=== PATIENT | male | born 1960 | race Caucasian/White ===

== ENCOUNTER 2016-06-12 17:30 | Inpatient (IN) | payer MEDICAID, OTHER ==
[~2016-06-12] VITALS: Ht 162.6 cm; Wt 65.5 kg
[~2016-06-12 17:30] MED LIST: ABAC1TAB12 PO; ACYC800T PO; GABA-526 PO; IBUP800T25 PO; MULT-552 PO; VITA1TAB58 PO
[2016-06-12] MEDS ORDERED: HYDROmorphONE 1 MG/ML SYG IV STA ×2 (19:28→22:25)
[2016-06-12] MEDS ORDERED: SOD CHLORIDE 0.9% 1,000 ML IV STA (19:28)
[2016-06-12] MEDS ORDERED: ONDANSETRON 4 MG INJ IV STA ×2 (19:28→22:25)
[2016-06-12] MEDS ORDERED: SOD CHLORIDE 0.9% 1,000 ML IV ONE (19:30)
[2016-06-12 19:41] LABS: ADD SCAN DIFF NO
[2016-06-12 19:43] LABS: BASOPHILS % 0.2 % (0.0-2.0); EOSINOPHILS % 0.1 % (0.0-7.0); LYMPHOCYTES # 1.4 10^3/ul (0.8-2.9); LYMPHOCYTES % 10.6 % (15.0-51.0); MEAN CORPUSCULAR HEMOGLOBIN 32.8 pg (29.0-33.0); MEAN CORPUSCULAR HGB CONC 34.9 g/dl (32.0-37.0); MEAN CORPUSCULAR VOLUME 93.9 fl (82.0-101.0); MEAN PLATELET VOLUME 8.9 fl (7.4-10.4); MONOCYTE # 0.8 10^3/ul (0.3-0.9); MONOCYTES % 6.1 % (0.0-11.0); NEUTROPHIL # 10.9 10^3/ul (1.6-7.5); NEUTROPHILS % 82.4 % (39.0-77.0); PLATELET COUNT 189 10^3/UL (140-415); RED BLOOD COUNT 4.58 10^6/ul (4.70-6.10); RED CELL DISTRIBUTION WIDTH 12.3 % (11.5-14.5); WHITE BLOOD COUNT 13.2 10^3/ul (4.8-10.8)
[2016-06-12 19:56] LABS: ALBUMIN 3.9 g/dl (3.3-4.9)
[2016-06-12 19:57] LABS: POTASSIUM 3.8 mmol/L (3.5-5.1)
[2016-06-12 19:59] LABS: ALBUMIN/GLOBULIN RATIO 0.97; BILIRUBIN,INDIRECT 0.2 mg/dl (0-1.1); BILIRUBIN,TOTAL 0.2 mg/dl (0.2-1.3); CREATININE 1.17 mg/dl (0.61-1.24); TOTAL PROTEIN 7.9 g/dl (6.1-8.1)
[2016-06-12 20:00] LABS: CALCIUM 8.7 mg/dl (8.4-10.2)
[2016-06-12] MEDS ORDERED: IODIXANOL LOCM 100 ML BTL ONE (20:06)
[2016-06-12] MEDS ORDERED: SOD CHLORIDE 0.9% 100 ML ONE (20:06)
--- NOTE | 2016-06-12 20:31 | RADRPT ---
PROCEDURE: CT abdomen and pelvis with contrast. CLINICAL INDICATION: Left lower quadrant abdominal pain and diarrhea TECHNIQUE: CT scan of the abdomen and pelvis with contrast was performed. Coronal and sagittal im ages were also reformatted. 90 cc Visipaque 320 intravenous contrast was administered without compl ication. Total exam CTDIvol = 7.56 mGy and DLP = 408.55 mGy-cm. COMPARISON: None available. FINDINGS: Visualized lower thorax: Mild bibasilar scarring or subsegmental atelectasis with trace traction typ e bronchiectasis in the lower lobes. There is no evidence for pleural effusion. Liver, gallbladder, pancreas and spleen: Normal hepatic contour, attenuation in size. There is no evidence for liver mass or ductal dilatation. Findings are compatible with prior cholecystectomy. No common bile duct dilatation is evident. The pancreas is normal. The spleen is normal, not enlar ged. Adrenal glands and genitourinary system: The adrenal glands are normal bilaterally. The kidneys ar e normal in size, contour and attenuation with no evidence for masses, calculi or hydronephrosis. S ome areas of renal cortex thinning are consistent with scarring The ureters are unremarkable. The u rinary bladder shows no abnormality. The prostate gland is normal in size. The visualized scrotum shows no abnormality. Gastrointestinal system: The stomach is normal in caliber without wall thickening the small bowel is normal in caliber without evidence of ileus or obstruction. There is no evidence of appendicitis . Liquid stool is present throughout the entire colon there is diffuse enhancement of the colonic mu cosa and mild stranding of the pericolonic fat, the findings consistent with nonspecific diffuse col itis pattern. There is no evidence of pneumatosis. Peritoneum, retroperitoneum, vessels and lymph nodes: The abdominal aorta is normal in caliber. Th ere is trace right iliac atherosclerotic calcification. Inferior vena cava is normal in caliber. P rominent small bowel mesenteric lymph nodes are noted but are less than 1 cm in short axis. The per itoneal cavity is normal with no evidence for ascites. No pneumoperitoneum is present Osseous structures and musculoskeletal system: There is no evidence for acute osseous abnormality o r muscular pathology. Incidental limbus vertebrae of the superior L5 level is noted. No subcutaneous abnormalities are present. RPTAT:HJJR IMPRESSION: 1. Diffuse colonic wall thickening and enhancement from the cecum to the rectum is consistent with nonspecific pancolitis, the liquid stool in the colonic lumen corresponding to the history of diarrh ea. Reactive type small bowel mesenteric lymph nodes most notably in the right lower quadrant region are present. 2. There is no pneumatosis, ascites, pneumoperitoneum or vascular abnormality to suggest the coliti s changes are ischemic in etiology. 3. Small scattered areas of bilateral renal cortex scarring. 4. Changes of prior cholecystectomy. Physician Morgan Date Time Electronically viewed and signed by Lenny Bingham Physician on 06/12/2016 20:31 /
--- NOTE | 2016-06-12 21:57 | ERA ---
ER Documentation Chief Complaint Date/Time DATE: 06/12/16 TIME: 21:55 Chief Complaint LLQ ABD PAIN AND DIARRHEA SINCE YESTERDAY HPI This is a 55-year-old male who complains of diffuse abdominal pain with profuse watery diarrhea for the past 2-3 days. He said it got much worse yesterday. His pain is described as diffuse crampy with sharp episodes. No blood in the stool no mucus no vomiting nausea and no fever. Denies any possible bad food exposure or recent travel. Says nothing makes the pain worse or better. ROS All systems reviewed and are negative except as per history of present illness. Medications Home Meds Active Scripts Ibuprofen* (Motrin*) 800 Mg Tab, 800 MG PO Q6H Y for PAIN AND OR ELEVATED TEMP, #30 TAB Prov:REBECCA VILLAR MD 11/23/15 Reported Medications Abacavir/Dolutegravir/Lamivudi (Triumeq Tablet) 1 Each Tablet, 1 EACH PO DAILY, TAB 11/23/15 Vitamin B Complex (B Complex) 1 Tab.sa Tablet.sa, 1 TAB.SA PO DAILY 11/23/15 Gabapentin* (Gabapentin*) 600 Mg Tablet, 600 MG PO BID, #60 TAB 11/23/15 Multivitamins* (Once Daily*) 1 Tab Tablet, 1 TAB PO DAILY, TAB 11/23/15 Acyclovir* (Acyclovir*) 800 Mg Tablet, 800 MG PO DAILY, TAB 11/23/15 Allergies Allergies: Coded Allergies: No Known Allergy (Unverified , 06/12/16) PMhx/Soc History of Surgery: Yes (gall bladder) Hx Neurological Disorder: No Hx Respiratory Disorders: No Hx Cardiac Disorders: No Hx Psychiatric Problems: No Hx Miscellaneous Medical Probl: Yes (HIV, SHINGGLES ) Hx Alcohol Use: No Hx Substance Use: No Hx Tobacco Use: No Smoking Status: Never smoker FmHx Family History: No coronary disease Physical Exam Vitals Vital Signs Date Time Temp Pulse Resp B/P Pulse Ox O2 Delivery O2 Flow Rate FiO2 06/12/16 20:26 99.8 92 20 126/99 98 Room Air 06/12/16 19:15 99.1 92 21 131/91 99 Room Air 06/12/16 17:43 101.7 107 20 134/77 96 Physical Exam Const: Well-developed, well-nourished Head: Atraumatic, normocephalic Eyes: Normal Conjunctiva, PERRLA, EOMI, normal sclera, no nystagmus ENT: Normal External Ears, Nose and Mouth, moist mucus membranes. Neck: Full range of motion. No meningismus, no lymphadenopathy. Resp: Clear to auscultation bilaterally, no wheezing, rhonchi, rales Cardio: Regular rate and rhythm, no murmurs, S1 S2 present Abd: Soft, moderate to severe diffuse abdominal pain, non distended. Normal bowel sounds, mild guarding, no pulsitile abdominal masses or bruits Skin: No petechiae or rashes, no ecchymosis , no maculopapular rash Back: No midline or flank tenderness Ext: No cyanosis, or edema, FROM x 4, normal inspection, neurovascularly intact x 4 Neur: Awake and alert, STR 5/5 x 4, sensation intact x 4, no focal findings, cerebellum intact Psych: Normal Mood and Affect Result Diagram: 06/12/16193406/12/161934 Results 24 hrs Laboratory Tests Test 06/12/16 19:35 Alanine Aminotransferase (ALT/SGPT) 38IU/L Albumin 3.9g/dl Albumin/Globulin Ratio 0.97 Alkaline Phosphatase 90IU/L Anion Gap 16 Aspartate Amino Transf (AST/SGOT) 26IU/L Basophils # 0.010^3/ul Basophils % 0.2% Blood Urea Nitrogen 18mg/dl Calcium Level 8.7mg/dl Carbon Dioxide Level 30mmol/L Chloride Level 99mmol/L Creatinine 1.17mg/dl Direct Bilirubin 0.00mg/dl Eosinophils # 0.010^3/ul Eosinophils % 0.1% Globulin 4.00g/dl Glucose Level 121mg/dl Hematocrit 43.0% Hemoglobin 15.0g/dl Indirect Bilirubin 0.2mg/dl Lipase 214U/L Lymphocytes # 1.410^3/ul Lymphocytes % 10.6% Mean Corpuscular Hemoglobin 32.8pg Mean Corpuscular Hemoglobin Concent 34.9g/dl Mean Corpuscular Volume 93.9fl Mean Platelet Volume 8.9fl Monocytes # 0.810^3/ul Monocytes % 6.1% Neutrophils # 10.910^3/ul Neutrophils % 82.4% Nucleated Red Blood Cells # 0.010^3/ul Nucleated Red Blood Cells % 0.0/100WBC Platelet Count 98539^3/UL Potassium Level 3.8mmol/L Red Blood Count 4.5810^6/ul Red Cell Distribution Width 12.3% Sodium Level 141mmol/L Total Bilirubin 0.2mg/dl Total Protein 7.9g/dl White Blood Count 13.210^3/ul Current Medications Medications (Trade) Dose Ordered Sig/Jez Route PRN Reason Start Time Stop Time Status Last Admin Dose Admin Sodium Chloride (NS) 1,000 ml @ 1,000 mls/hr Q1H STAT IV 06/12/16 19:28 06/12/16 20:27 DC 06/12/16 19:39 Hydromorphone HCl (Dilaudid) 1 mg ONCE STAT IV 06/12/16 19:28 06/12/16 19:29 DC 06/12/16 19:39 Ondansetron HCl 4 mg 4 mg ONCE STAT IV 06/12/16 19:28 06/12/16 19:29 DC 06/12/16 19:39 Sodium Chloride (NS) 1,000 ml @ 1,000 mls/hr Q1H ONCE IV 06/12/16 19:30 06/12/16 20:29 DC 06/12/16 20:36 IV Flush 10 ml 10 ml STK-MED ONCE .ROUTE 06/12/16 20:06 06/12/16 20:07 DC 06/12/16 20:17 Sodium Chloride (NS) 100 ml @ ud STK-MED ONCE .ROUTE 06/12/16 20:06 06/12/16 20:07 DC 06/12/16 20:17 Iodixanol 100 ml 100 ml STK-MED ONCE .ROUTE 06/12/16 20:06 06/12/16 20:07 DC 06/12/16 20:17 Ertapenem/Sodium Chloride (Invanz/NS) 100 ml @ 200 mls/hr ONCE ONCE IVPB 06/12/16 22:00 06/12/16 22:29 Procedures/MDM PROCEDURE: CT abdomen and pelvis with contrast. CLINICAL INDICATION: Left lower quadrant abdominal pain and diarrhea TECHNIQUE: CT scan of the abdomen and pelvis with contrast was performed. Coronal and sagittal images were also reformatted. 90 cc Visipaque 320 intravenous contrast was administered without complication. Total exam CTDIvol = 7.56 mGy and DLP = 408.55 mGy-cm. COMPARISON: None available. FINDINGS: Visualized lower thorax: Mild bibasilar scarring or subsegmental atelectasis with trace traction type bronchiectasis in the lower lobes. There is no evidence for pleural effusion. Liver, gallbladder, pancreas and spleen: Normal hepatic contour, attenuation in size. There is no evidence for liver mass or ductal dilatation. Findings are compatible with prior cholecystectomy. No common bile duct dilatation is evident. The pancreas is normal. The spleen is normal, not enlarged. Adrenal glands and genitourinary system: The adrenal glands are normal bilaterally. The kidneys are normal in size, contour and attenuation with no evidence for masses, calculi or hydronephrosis. Some areas of renal cortex thinning are consistent with scarring The ureters are unremarkable. The urinary bladder shows no abnormality. The prostate gland is normal in size. The visualized scrotum shows no abnormality. Gastrointestinal system: The stomach is normal in caliber without wall thickening the small bowel is normal in caliber without evidence of ileus or obstruction. There is no evidence of appendicitis. Liquid stool is present throughout the entire colon there is diffuse enhancement of the colonic mucosa and mild stranding of the pericolonic fat, the findings consistent with nonspecific diffuse colitis pattern. There is no evidence of pneumatosis. Peritoneum, retroperitoneum, vessels and lymph nodes: The abdominal aorta is normal in caliber. There is trace right iliac atherosclerotic calcification. Inferior vena cava is normal in caliber. Prominent small bowel mesenteric lymph nodes are noted but are less than 1 cm in short axis. The peritoneal cavity is normal with no evidence for ascites. No pneumoperitoneum is present Osseous structures and musculoskeletal system: There is no evidence for acute osseous abnormality or muscular pathology. Incidental limbus vertebrae of the superior L5 level is noted. No subcutaneous abnormalities are present. RPTAT:HJJR IMPRESSION: 1. Diffuse colonic wall thickening and enhancement from the cecum to the rectum is consistent with nonspecific pancolitis, the liquid stool in the colonic lumen corresponding to the history of diarrhea. Reactive type small bowel mesenteric lymph nodes most notably in the right lower quadrant region are present. 2. There is no pneumatosis, ascites, pneumoperitoneum or vascular abnormality to suggest the colitis changes are ischemic in etiology. 3. Small scattered areas of bilateral renal cortex scarring. 4. Changes of prior cholecystectomy. Lenny Bingham, Physician Date Time Electronically viewed and signed by Lenny Bingham Physician on 06/12/2016 20:31 JR/ CC: EMILY BARNETT DO Patient received IV fluids pain medication and Invanz 1 g IV. Severe pancolitis with severe diarrhea will admit to the hospital for IV fluids and antibiotics Departure Diagnosis: Primary Impression: Pancolitis Condition: Stable EMILY BARNETT DO Jun 12, 2016 21:57
[2016-06-12] MEDS ORDERED: ERTAPENEM SODIUM 1 GM in SOD CHLORIDE 0.9% 100 ML IVPB ONE (22:00)
[2016-06-12] MEDS ORDERED: SOD CHLORIDE 0.9% 1,000 ML IV SCH (22:56)
[2016-06-12] MEDS ORDERED: ACETAMINOPHEN 325 MG TAB PO PRN (23:00)
[2016-06-12] MEDS ORDERED: ONDANSETRON 4 MG INJ IV PRN (23:00)
[2016-06-12 23:59] VITALS: PULSE 81; TEMP 100
[2016-06-13 02:00] VITALS: BP 115/61; RESP 18
[2016-06-13] MEDS ORDERED: ONDANSETRON 4 MG INJ IV PRN (02:00)
[2016-06-13 02:13] VITALS: Ht 162.6 cm; Wt 65.5 kg
[2016-06-13] MEDS: DEXTROSE 5%-0.45% NACL 1,000 ML IV SCH ×3 (02:18→23:40)
[2016-06-13] MEDS: morphine 4 MG/ML VIAL IV PRN ×2 (04:29→08:59)
[2016-06-13 04:57] LABS: ADD SCAN DIFF NO
[2016-06-13 05:12] LABS: BASOPHILS % 0.2 % (0.0-2.0); EOSINOPHILS % 0.1 % (0.0-7.0); HEMATOCRIT 39.3 % (42.0-52.0); HEMOGLOBIN 13.5 g/dl (14.0-18.0); LYMPHOCYTES # 1.4 10^3/ul (0.8-2.9); MEAN CORPUSCULAR HEMOGLOBIN 32.5 pg (29.0-33.0); MEAN CORPUSCULAR HGB CONC 34.4 g/dl (32.0-37.0); MEAN CORPUSCULAR VOLUME 94.7 fl (82.0-101.0); MEAN PLATELET VOLUME 9.2 fl (7.4-10.4); MONOCYTE # 0.7 10^3/ul (0.3-0.9); MONOCYTES % 6.1 % (0.0-11.0); NEUTROPHIL # 8.9 10^3/ul (1.6-7.5); NEUTROPHILS % 80.1 % (39.0-77.0); PLATELET COUNT 172 10^3/UL (140-415); RED BLOOD COUNT 4.15 10^6/ul (4.70-6.10); RED CELL DISTRIBUTION WIDTH 12.4 % (11.5-14.5); WHITE BLOOD COUNT 11.1 10^3/ul (4.8-10.8)
[2016-06-13 05:19] LABS: ALBUMIN 3.3 g/dl (3.3-4.9)
[2016-06-13 05:20] LABS: POTASSIUM 3.6 mmol/L (3.5-5.1)
[2016-06-13 05:22] LABS: BILIRUBIN,INDIRECT 0.3 mg/dl (0-1.1); BILIRUBIN,TOTAL 0.3 mg/dl (0.2-1.3)
[2016-06-13 05:23] LABS: ALBUMIN/GLOBULIN RATIO 0.89; CALCIUM 7.9 mg/dl (8.4-10.2); MAGNESIUM 1.7 mg/dl (1.7-2.5); PHOSPHORUS 2.7 mg/dl (2.5-4.9)
[2016-06-13] MEDS: metroNIDAZOLE 500 MG/NS (PMX) 100 ML IVPB SCH ×3 (06:14→21:56)
[2016-06-13 08:31] VITALS: BP 123/76; RESP 17
[2016-06-13] MEDS: CIPROFLOXACIN 400MG/D5W 200 ML IVPB SCH ×2 (08:48→20:15)
[2016-06-13] MEDS: FAMOTIDINE 20 MG INJ IV SCH ×2 (08:48→20:16)
[2016-06-13] MEDS: VITAMIN B COMPLEX/VIT C CAP PO SCH (09:00)
[2016-06-13] MEDS ORDERED: NON-FORMULARY/PATIENT OWN MED (Abacavir/Dolutegravir/Lamivudi (Triumeq Tablet) 1 EACH) PO SCH (09:00)
[2016-06-13] MEDS: MULTIVITAMINS THERAPEUTIC TAB PO SCH (09:00)
[2016-06-13] MEDS: GABAPENTIN 300 MG CAP PO SCH ×2 (09:00→20:16)
[2016-06-13] MEDS: ACYCLOVIR 800 MG TAB PO SCH (09:00)
--- NOTE | 2016-06-13 12:53 | HP ---
Date/Time of Note Date/Time of Note DATE: 06/13/16 TIME: 12:46 Assessment/Plan VTE Prophylaxis VTE Prophylaxis Intervention: SCD's Lines/Catheters [facility] (from [facility]): Peripheral IV Urinary Cath still in place: No Assessment/Plan Assessment/Plan 1. Pancolitis - cipro and flagyl - check stool cx and c-diff - If no improvement, will do further w/u for HIV related diarrhea. Will check CD4 and HIV viral load - ID consult 2. Abd pain and diarrhea: - see # 1 3. Hx of HIV: dx'd 3 years ago - Cont home med - Will check CD4 and HIV viral load DVT ppx: SCDs GI ppx: PPI HPI/ROS Admit Date/Time Admit Date/Time Jun 12, 2016 at 22:57 Hx of Present Illness This is a 55 yo male with hx of HIV diagnosed 3 years ago and remote hx of facial shingles who presented to [facility] with abd pain and diarrhea of few days duration. Diarrhea is described as watery, but non-bloody. Stated he is compliant with his HIV meds. In ER, CT abd/pelvis showed Pancolitis. he was also febrile with temp of 101.7 with WBC of 13K... PMH/Family/Social Social History Smoking Status: Never smoker Exam/Review of Systems Vital Signs Vitals Vital Signs Date Time Temp Pulse Resp B/P Pulse Ox O2 Delivery O2 Flow Rate FiO2 06/13/16 08:31 98.6 70 17 123/76 98 06/12/16 23:59 Room Air Intake and Output 06/12/16 06/12/16 06/13/16 15:00 23:00 07:00 Intake Total 2100 ml 280 ml Balance 2100 ml 280 ml Exam Constitutional: alert, oriented, well developed Head: atraumatic, normocephalic Eyes: EOMI, PERRL Neck: non-tender, supple Respiratory: clear to auscultation, normal air movement Cardiovascular: nl pulses, regular rate and rhythm Gastrointestinal: soft, tender Extremities: normal pulses Labs Result Diagram: 06/13/1643406/13/16434 Medications Medications Current Medications Dextrose/Sodium Chloride (D5-1/2ns) 1,000 ml @ 100 mls/hr Q10H IV Last administered on 06/13/16t 02:18; Admin Dose 100 MLS/HR; Start 06/13/16 at 01:30 Famotidine 20 mg 20 mg Q12 IV Last administered on 06/13/16 08:48; Admin Dose 20 MG; Start 06/13/16 at 09:00 Ciprofloxacin/ Dextrose 200 ml @ 200 mls/hr Q12 IVPB Last administered on 08:48; Admin Dose 200 MLS/HR; Start 06/13/16 at 09:00 Metronidazole (Flagyl 500 Mg (Pmx)) 100 ml @ 100 mls/hr Q8 IVPB Last administered on 06/13/16 06:14; Admin Dose 100 MLS/HR; Start 06/13/16 at 06:00 Morphine Sulfate (morphine) 3 mg Q4H PRN IV PAIN LEVEL 6-10 Last administered on 06/13/16 08:59; Admin Dose 3 MG; Start 06/13/16 at 02:00 Ondansetron HCl (Zofran Inj) 4 mg Q6H PRN IV NAUSEA AND/OR VOMITING Last administered on 06/13/16 08:58; Admin Dose 4 MG; Start 06/13/16 at 02:00 Acyclovir (Zovirax) 800 mg DAILY PO ; Start 06/13/16 at 09:00 Gabapentin (Neurontin) 600 mg BID PO ; Start 06/13/16 at 09:00 Multivitamins Therapeutic (Theragran) 1 tab DAILY PO ; Start 06/13/16 at 09:00 Miscellaneous Information 1 each DAILY PO ; Start 06/13/16 at 09:00; Status UNV Vitamin B Complex/ Vitamin C (Berocca) 1 cap DAILY PO ; Start 06/13/16 at 09:00 Miscellaneous Information (*Order Clarification Bulletin) (Abacavir/ Dolutegravir/ Lamiv... Q8H XX Last administered on 06/13/16 09:00; Admin Dose 1 EA; Start 06/13/16 at 09:00 LUZ MARIA GAO MD Jun 13, 2016 12:53
--- NOTE | 2016-06-13 12:59 | HP ---
Date/Time of Note Date/Time of Note DATE: 06/13/16 TIME: 12:43 Assessment/Plan VTE Prophylaxis VTE Prophylaxis Intervention: LMWH Lines/Catheters [facility] (from [facility] Peripheral IV Urinary Cath still in place: No Assessment/Plan Assessment/Plan 1. Acute colitis, NPO/IVF, antibiotics 2. HIV disease, continue antiviral 3. Singles, stable 4. DVT prophylaxis: lovenox HPI/ROS Admit Date/Time Admit Date/Time Jun 12, 2016 at 22:57 Hx of Present Illness 55 years old male with HIV disease and shingles that he has been on treatment for 3 years comes in with 3 days diffuse abdominal pain, watery diarrhea, one day fever and chills. Nausea but no vomiting. ROS Constitutional: chills, fatigue, febrile, nausea, No diaphoresis, No disoriented, No improved, No other, No poor po, No weight change Eyes: no complaints, No discharge, No other, No pain, No redness, No visual change ENT: no complaints, No bleeding, No congestion, No discharge, No dysphagia, No other, No pain, No sore throat Respiratory: no complaints, No cough, No other, No pain, No pleuritic pain, No shortness of breath, No sputum, No wheezing Cardiovascular: no complaints, No chest pain, No edema, No lightheadedness, No orthopenea, No other, No palpitations, No paroxysmal nocturnal dyspnea Gastrointestinal: diarrhea, nausea, pain Genitourinary: No bleeding, No discharge, No dysuria, No flank pain, No hematuria, No other Musculoskeletal: No back pain, No bone/joint pain, No neck pain, No no complaints, No other, No restricted range of motion, No swelling Skin: No bruising, No erythema, No laceration, No no complaints, No other, No pruritis, No rash, No skin lesions Neurologic: No confusion, No dizziness, No focal-weakness, No headache, No no complaints, No other, No seizure, No syncope Endocrine: No dry skin, No no complaints, No other, No polydypsia, No polyuria , No temp intolerance, No weight change Psychological: No anxiety, No confusion, No depression, No nl mood/affect, No no complaints, No other, No suicidal PMH/Family/Social Past Medical History Medical History: other (HIV, shingles) Social History Alcohol Use: none Smoking Status: Never smoker Drug Use: none Exam/Review of Systems Vital Signs Vitals Vital Signs Date Time Temp Pulse Resp B/P Pulse Ox O2 Delivery O2 Flow Rate FiO2 06/13/16 08:31 98.6 70 17 123/76 98 06/12/16 23:59 Room Air Intake and Output 06/12/16 06/12/16 06/13/16 15:00 23:00 07:00 Intake Total 2100 ml 280 ml Balance 2100 ml 280 ml Exam Constitutional: alert, oriented, well developed Psych: nl mood/affect, no complaints Head: atraumatic, normocephalic Eyes: EOMI, PERRL, nl conjunctiva, nl lids ENMT: nl external ears & nose, nl lips & teeth, nl nasal mucosa & septum Neck: non-tender, supple Respiratory: clear to auscultation, normal air movement, No congested cough, No crackles/rales, No diminished breath sounds, No intercostal retraction, No labored breathing, No other, No respirations, No tactile fremitus, No wheezing Cardiovascular: nl pulses, regular rate and rhythm, No S3, No S4, No bruits, No diastolic murmur, No edema, No gallop, No irregular rhythm, No jugular venous distention (JVD), No murmurs/extra sounds, No other, No rub, No systolic murmur Gastrointestinal: nl liver, spleen, soft, tender (diffuse ), No ascites, No bowel sounds, No distended, No firm, No hepatomegaly, No mass , No other, No rebound or guarding, No splenomegaly, No surgical scars Musculoskeletal: nl extremities to inspection Extremities: normal pulses, No calf tenderness, No clubbing, No cyanosis, No edema, No other, No palpable cord, No pitting pedal edema, No tenderness Neurological: [employer]YING [employer] II-XII intact, nl mental status, nl speech, nl strength Skin: nl turgor Lymph: nl lymph nodes Labs Result Diagram: 06/13/1643406/13/16434 Medications Medications Current Medications Dextrose/Sodium Chloride (D5-1/2ns) 1,000 ml @ 100 mls/hr Q10H IV Last administered on 06/13/16t 02:18; Admin Dose 100 MLS/HR; Start 06/13/16 at 01:30 Famotidine 20 mg 20 mg Q12 IV Last administered on 06/13/16 08:48; Admin Dose 20 MG; Start 06/13/16 at 09:00 Ciprofloxacin/ Dextrose 200 ml @ 200 mls/hr Q12 IVPB Last administered on 08:48; Admin Dose 200 MLS/HR; Start 06/13/16 at 09:00 Metronidazole (Flagyl 500 Mg (Pmx)) 100 ml @ 100 mls/hr Q8 IVPB Last administered on 06/13/16 06:14; Admin Dose 100 MLS/HR; Start 06/13/16 at 06:00 Morphine Sulfate (morphine) 3 mg Q4H PRN IV PAIN LEVEL 6-10 Last administered on 06/13/16 08:59; Admin Dose 3 MG; Start 06/13/16 at 02:00 Ondansetron HCl (Zofran Inj) 4 mg Q6H PRN IV NAUSEA AND/OR VOMITING Last administered on 06/13/16 08:58; Admin Dose 4 MG; Start 06/13/16 at 02:00 Acyclovir (Zovirax) 800 mg DAILY PO ; Start 06/13/16 at 09:00 Gabapentin (Neurontin) 600 mg BID PO ; Start 06/13/16 at 09:00 Multivitamins Therapeutic (Theragran) 1 tab DAILY PO ; Start 06/13/16 at 09:00 Miscellaneous Information 1 each DAILY PO ; Start 06/13/16 at 09:00; Status UNV Vitamin B Complex/ Vitamin C (Berocca) 1 cap DAILY PO ; Start 06/13/16 at 09:00 Miscellaneous Information (*Order Clarification Bulletin) (Abacavir/ Dolutegravir/ Lamiv... Q8H XX Last administered on 06/13/16 09:00; Admin Dose 1 EA; Start 06/13/16 at 09:00 HARVEY SOTELO MD Jun 13, 2016 12:53
[2016-06-13] MEDS: ENOXAPARIN 40 MG/0.4 ML SYG SC SCH (14:11)
[2016-06-13] MEDS ORDERED: ACETAMINOPHEN 325 MG TAB PO PRN (14:30)
[2016-06-13 21:44] VITALS: BP 115/70; RESP 21
[2016-06-14] MEDS: metroNIDAZOLE 500 MG/NS (PMX) 100 ML IVPB SCH ×2 (05:14→14:03)
[2016-06-14 05:29] LABS: ADD SCAN DIFF NO
[2016-06-14 05:59] LABS: BASOPHILS % 0.5 % (0.0-2.0); EOSINOPHILS # 0.1 10^3/ul (0.0-0.5); EOSINOPHILS % 2.4 % (0.0-7.0); HEMATOCRIT 42.3 % (42.0-52.0); HEMOGLOBIN 14.5 g/dl (14.0-18.0); LYMPHOCYTES # 1.9 10^3/ul (0.8-2.9); LYMPHOCYTES % 32.4 % (15.0-51.0); MEAN CORPUSCULAR HEMOGLOBIN 32.3 pg (29.0-33.0); MEAN CORPUSCULAR HGB CONC 34.3 g/dl (32.0-37.0); MEAN CORPUSCULAR VOLUME 94.2 fl (82.0-101.0); MEAN PLATELET VOLUME 9.2 fl (7.4-10.4); MONOCYTE # 0.8 10^3/ul (0.3-0.9); MONOCYTES % 12.7 % (0.0-11.0); NEUTROPHILS % 50.6 % (39.0-77.0); PLATELET COUNT 177 10^3/UL (140-415); RED BLOOD COUNT 4.49 10^6/ul (4.70-6.10); RED CELL DISTRIBUTION WIDTH 12.3 % (11.5-14.5); WHITE BLOOD COUNT 5.9 10^3/ul (4.8-10.8)
[2016-06-14 06:22] LABS: POTASSIUM 3.5 mmol/L (3.5-5.1)
[2016-06-14 06:25] LABS: CREATININE 1.21 mg/dl (0.61-1.24)
[2016-06-14 06:26] LABS: CALCIUM 8.7 mg/dl (8.4-10.2)
[2016-06-14 07:20] VITALS: BP 105/64; RESP 16
[2016-06-14] MEDS: DEXTROSE 5%-0.45% NACL 1,000 ML IV SCH ×2 (07:30→17:30)
[2016-06-14] MEDS: GABAPENTIN 300 MG CAP PO SCH (08:59)
[2016-06-14] MEDS: MULTIVITAMINS THERAPEUTIC TAB PO SCH (08:59)
[2016-06-14] MEDS: FAMOTIDINE 20 MG INJ IV SCH (08:59)
[2016-06-14] MEDS: CIPROFLOXACIN 400MG/D5W 200 ML IVPB SCH (08:59)
[2016-06-14] MEDS: VITAMIN B COMPLEX/VIT C CAP PO SCH (08:59)
[2016-06-14] MEDS: ACYCLOVIR 800 MG TAB PO SCH (08:59)
[2016-06-14] MEDS ORDERED: GENVOYA PO SCH (09:00)
[2016-06-14] MEDS: ENOXAPARIN 40 MG/0.4 ML SYG SC SCH (09:01)
[2016-06-14 13:04] LABS: LYMPHOCYTE - % CD4 (HELPER) 18 % (30-61); LYMPHOCYTE - %CD8 (SUPPRESSOR) 41 % (12-42); LYMPHOCYTE - ABSOLUTE CD4 259 cells/uL (490-1740); LYMPHOCYTE - ABSOLUTE CD8 596 cells/uL (180-1170); LYMPHOCYTE - CD4/CD8 RATIO 0.43 (0.86-5.00)
--- NOTE | 2016-06-14 16:13 | PDOCDIS ---
Discharge Instructions CONDITION Patient Condition: Stable HOME CARE INSTRUCTIONS: Diet Instructions: Regular ACTIVITY: Activity Restrictions: Slowly Increase Activity FOLLOW UP/APPOINTMENTS Appointments Please take your medications, see your doctor in the clinic in 1 week. AGUSTÍN CHILDERS Jun 14, 2016 16:13
[2016-06-14] MEDS ORDERED: CIPR500T4 PO (16:14)
[2016-06-14] MEDS ORDERED: METR500T PO (16:14)
--- NOTE | 2016-06-14 16:55 | DS ---
DATE OF ADMISSION: 06/12/2016 DATE OF DISCHARGE: 06/14/2016 HOSPITAL COURSE: This is a 55-year-old male, originally admitted on 06/13/2016 , being discharged home on 06/14/2016. The patient came in with abdominal pain and diarrhea for a few days prior to admission. He had some watery diarrhea. He also had a slight leukocytosis on admission. He had a CT scan that did show pancolitis. He was started on Cipro and Flagyl antibiotics. Over the course of his hospital stay, his abdominal pain symptoms improved. His white count trended down to normal range. He was able to ambulate and tolerate a p.o. diet. He had a CD4 count checked that showed a CD4 count of 259. He was continued on his HAART medicine as well, and also acyclovir, which he is taking. Patient is going to be started on a diet today and if he tolerates that , and has no further pain. He has also had no fevers for the last 24 hours, and if that continues, and he has no pain on eating, and his diarrhea symptoms which have resolved now, if that continues to be the case, he will be discharged home today in improved condition. DISCHARGE MEDICATIONS He will need to take the following medications, however: 1. Cipro 500 mg p.o. b.i.d. for 7 days. 2. Flagyl 500 mg p.o. t.i.d. for 7 days. He will continue: 3. Triumeq tablet 1 tab daily. 4. Acyclovir 800 mg daily. 5. Gabapentin 600 mg b.i.d. 6. Motrin 800 mg q.6h. p.r.n. 7. Multivitamin 1 tab daily. 8. Vitamin B complex 1 tab daily. FOLLOWUP: He will need to follow up with primary care doctor in the clinic in the next 1 to 2 weeks. FINAL DIAGNOSES 1. Abdominal pain and diarrhea, secondary to pancolitis - now improving on antibiotics. 2. History of human immunodeficiency virus with latest CD4 count of 259. Continue antiretroviral therapy. 3. History of shingles - stable; continue acyclovir. TIME SPENT DISCHARGING PATIENT: Forty minutes. Dictated By: AGUSTÍN DANIELS Conf#: [id number] DID#: [id number] [facility]
== END 2016-06-14 19:13 | disposition home or self-care (01) | DRG 977 ==
LOC: E/R 17:30 → PP2 22:57
PROVIDERS: ADMIT Internal Medicine; ATTEND Internal Medicine
DX: B20 Human immunodeficiency virus [HIV] disease (principal); K51.00 Ulcerative (chronic) pancolitis without complications
CPT/HCPCS: 36415; 74177; 80048; 80053; 83690; 83735; 84100; 85025; 86360; 87045; 87075; 87205; 87536; 96361; 96365; 96375; 96376; J0744; J1170; J1335; J1650; J2270; J2405; J7030; J7042; Q9967

== ENCOUNTER 2016-11-11 19:37 | Emergency (ER) | payer MEDICAID, OTHER ==
[~2016-11-11] VITALS: Ht 160 cm; Wt 64.0 kg
[~2016-11-11 19:37] MED LIST changes: +CIPR500T4 PO; +METR500T PO
[2016-11-11 19:44] VITALS: Ht 160 cm; Wt 64.0 kg
[2016-11-11] MEDS ORDERED: KETOROLAC 30 MG INJ IV STA (20:51)
[2016-11-11 21:44] LABS: BASOPHILS % 0.4 % (0.0-2.0); EOSINOPHILS # 0.3 10^3/ul (0.0-0.5); EOSINOPHILS % 3.7 % (0.0-7.0); HEMOGLOBIN 14.3 g/dl (14.0-18.0); LYMPHOCYTES # 2.8 10^3/ul (0.8-2.9); LYMPHOCYTES % 37.9 % (15.0-51.0); MEAN CORPUSCULAR HEMOGLOBIN 33.8 pg (29.0-33.0); MEAN CORPUSCULAR HGB CONC 35.8 g/dl (32.0-37.0); MEAN CORPUSCULAR VOLUME 94.6 fl (82.0-101.0); MONOCYTE # 0.7 10^3/ul (0.3-0.9); MONOCYTES % 8.9 % (0.0-11.0); NEUTROPHIL # 3.5 10^3/ul (1.6-7.5); NEUTROPHILS % 47.7 % (39.0-77.0); PLATELET COUNT 187 10^3/UL (140-415); RED BLOOD COUNT 4.23 10^6/ul (4.70-6.10); RED CELL DISTRIBUTION WIDTH 12.5 % (11.5-14.5); WHITE BLOOD COUNT 7.3 10^3/ul (4.8-10.8)
--- NOTE | 2016-11-11 21:49 | RADRPT ---
PROCEDURE: XR Chest. CLINICAL INDICATION: Chest pain. TECHNIQUE: Single frontal view. COMPARISON: None. FINDINGS: There is mild linear scarring or atelectasis in the left mid lung zone. The lungs are otherwise zonia ar. The heart size is normal. There is no pleural effusion. There is no pneumothorax. IMPRESSION: 1. Mild linear scarring or atelectasis in the left mid lung zone. 2. Otherwise normal chest radiograph. RPTAT: QQ .Mike Waller MD, MD Date Time Electronically viewed and signed by .Mike Waller MD, MD on 11/11/2016 21:49 .R/
[2016-11-11 21:59] LABS: INR 0.93; PROTIME 12.5 Sec (12.2-14.2)
[2016-11-11 22:00] LABS: PARTIAL THROMBOPLASTIN TIME 27.4 Sec (25.0-35.0)
[2016-11-11 22:01] LABS: ANION GAP 17 (8-16); BLOOD UREA NITROGEN 19 mg/dl (7-20); CARBON DIOXIDE 30 mmol/L (21-31); CHLORIDE 101 mmol/L (97-110); CREATININE 1.34 mg/dl (0.61-1.24); GLUCOSE 94 mg/dl (70-220); POTASSIUM 4.2 mmol/L (3.5-5.1); SODIUM 144 mmol/L (135-144)
[2016-11-11 22:14] LABS: TROPONIN-I < 0.012 ng/ml (0.00-0.12)
[2016-11-11] MEDS ORDERED: IBUP-1542 PO (22:19)
--- NOTE | 2016-11-11 22:22 | ERD ---
ER Documentation Chief Complaint Date/Time DATE: 11/11/16 TIME: 22:21 Chief Complaint chest pain x 15 days with sore throat. denies sob/cough HPI Patient is a 56-year-old male with HIV who presents with chest pain. He has left-sided chest pain over the past 30 days. The pain comes and goes and is sharp in nature. He said that it lasts hours at a time when it comes. He has had no treatment as of yet. He denies cough. Upon review of old medical records this is the patient's third visit to the ER since 2016. He goes to a local clinic for his care. ROS All systems reviewed and are negative except as per history of present illness. Medications Home Meds Active Scripts Ibuprofen* (Motrin*) 600 Mg Tab, 600 MG PO Q8, #30 TAB Prov:MELECIO PEREZ MD 11/11/16 Metronidazole* (Flagyl*) 500 Mg Tablet, 500 MG PO TID for 7 Days, #21 TAB Prov:AGUSTÍN CHILDERS S. 06/14/16 Ciprofloxacin Hcl* (Ciprofloxacin Hcl*) 500 Mg Tablet, 500 MG PO BID for 7 Days , #14 TAB Prov:AGUSTÍN CHILDERS S. 06/14/16 Ibuprofen* (Motrin*) 800 Mg Tab, 800 MG PO Q6H Y for PAIN AND OR ELEVATED TEMP, #30 TAB Prov:REBECCA VILLAR MD 11/23/15 Reported Medications Abacavir/Dolutegravir/Lamivudi (Triumeq Tablet) 1 Each Tablet, 1 EACH PO DAILY, TAB 11/23/15 Vitamin B Complex (B Complex) 1 Tab.sa Tablet.sa, 1 TAB.SA PO DAILY 11/23/15 Gabapentin* (Gabapentin*) 600 Mg Tablet, 600 MG PO BID, #60 TAB 11/23/15 Multivitamins* (Once Daily*) 1 Tab Tablet, 1 TAB PO DAILY, TAB 11/23/15 Acyclovir* (Acyclovir*) 800 Mg Tablet, 800 MG PO DAILY, TAB 11/23/15 Allergies Allergies: Coded Allergies: No Known Allergy (Unverified , 06/12/16) PMhx/Soc History of Surgery: Yes (gall bladder) Anesthesia Reaction: No Hx Neurological Disorder: No Hx Respiratory Disorders: No Hx Cardiac Disorders: No Hx Psychiatric Problems: No Hx Miscellaneous Medical Probl: Yes (HIV, Shingles) Hx Alcohol Use: No Hx Substance Use: No Hx Tobacco Use: No Smoking Status: Never smoker FmHx Family History: No coronary disease Physical Exam Vitals Vital Signs Date Time Temp Pulse Resp B/P Pulse Ox O2 Delivery O2 Flow Rate FiO2 11/11/16 21:10 Nasal Cannula 2 11/11/16 19:44 99.0 81 18 127/76 98 Physical Exam Const: No acute distress Head: Atraumatic Eyes: Normal Conjunctiva ENT: Normal External Ears, Nose and Mouth. Neck: Full range of motion..~ No meningismus. Resp: Clear to auscultation bilaterally Cardio: Regular rate and rhythm, no murmurs Abd: Soft, non tender, non distended. Normal bowel sounds Skin: No petechiae or rashes Back: No midline or flank tenderness Ext: No cyanosis, or edema, chest wall pain with palpation which does reproduce his pain Neur: Awake and alert Psych: Normal Mood and Affect Result Diagram: 11/11/16210911/11/162109 Results 24 hrs Laboratory Tests Test 11/11/16 21:10 White Blood Count 7.310^3/ul Red Blood Count 4.2310^6/ul Hemoglobin 14.3g/dl Hematocrit 40.0% Mean Corpuscular Volume 94.6fl Mean Corpuscular Hemoglobin 33.8pg Mean Corpuscular Hemoglobin Concent 35.8g/dl Red Cell Distribution Width 12.5% Platelet Count 43342^3/UL Mean Platelet Volume 9.0fl Neutrophils % 47.7% Lymphocytes % 37.9% Monocytes % 8.9% Eosinophils % 3.7% Basophils % 0.4% Nucleated Red Blood Cells % 0.0/100WBC Neutrophils # 3.510^3/ul Lymphocytes # 2.810^3/ul Monocytes # 0.710^3/ul Eosinophils # 0.310^3/ul Basophils # 0.010^3/ul Nucleated Red Blood Cells # 0.010^3/ul Prothrombin Time 12.5Sec Prothrombin Time Ratio 1.0 INR International Normalized Ratio 0.93 Activated Partial Thromboplast Time 27.4Sec Sodium Level 144mmol/L Potassium Level 4.2mmol/L Chloride Level 101mmol/L Carbon Dioxide Level 30mmol/L Anion Gap 17 Blood Urea Nitrogen 19mg/dl Creatinine 1.34mg/dl Glucose Level 94mg/dl Calcium Level 9.0mg/dl Troponin I < 0.012ng/ml Current Medications Medications (Trade) Dose Ordered Sig/Jez Route PRN Reason Start Time Stop Time Status Last Admin Dose Admin Ketorolac Tromethamine (Toradol) 30 mg ONCE STAT IV 11/11/16 20:51 11/11/16 20:52 DC 11/11/16 21:11 Procedures/MDM EKG #1 read by me: Rate/Rhythm: Regular rate and rhythm at a rate of 68 Intervals: Normal Impression: No evidence of ischemia or arrhythmia EKG #2 read by me: Rate/Rhythm: Regular rate and rhythm at a rate of 58 Intervals: Normal Impression: No evidence of ischemia or arrhythmia Chest x-ray negative per radiology. Patient is a 56-year-old male with no cardiac risk factors who presents with chest pain. The patient has chest wall pain with palpation. His troponin is negative. 2 EKGs did not show any signs of ischemia. His chest x-ray shows no pneumonia or pneumothorax. At this point I believe outpatient management is appropriate. The patient will be discharged but will need to follow-up with his primary doctor within 24-48 hours. He will be given ibuprofen for pain. He can return for any worsening symptoms. Departure Diagnosis: Primary Impression: Chest pain Chest pain type: unspecified Qualified Code: R07.9 - Chest pain, unspecified type Condition: Fair Patient Instructions: Chest Pain, Uncertain Cause Referrals: [facility] (PCP) Additional Instructions: Llame al doctor MAAVELINA y ricky ravi JASVIR PARA DENTRO DE 1-2 QUINONES.Dgale a la secretaria que nosotros le instruimos hacer esta jasvir.Avise o llame si bagley condicin se empeora antes de la jasvir. Regresa aqui si peor o no mejor. MELECIO PEREZ MD Nov 11, 2016 22:22
[2016-11-11 22:25] VITALS: BP 105/65; PULSE 48; RESP 18; TEMP 97.7
== END 2016-11-11 22:30 | disposition home or self-care (01) ==
LOC: E/R 19:37
DX: R07.9 Chest pain, unspecified (principal)
CPT/HCPCS: 36415; 71010; 80048; 84484; 85025; 85610; 85730; 93005; 96374; 99285; J1885

== ENCOUNTER 2017-04-06 07:21 | Emergency (ER) | END 2017-04-06 12:38 | disposition home or self-care (01) ==

== ENCOUNTER 2017-06-27 08:58 | Emergency (ER) | END 2017-06-27 14:06 | disposition home or self-care (01) ==